=== PATIENT | male | born 1985 | race African-American/Black ===

== ENCOUNTER 2023-08-07 15:06 | Emergency (ER) | payer SELFPAY | END 2023-08-07 16:37 | disposition home or self-care (01) | LOC: ERS 15:06 | DX: H60.92 Unspecified otitis externa, left ear (principal); H66.92 Otitis media, unspecified, left ear | CPT/HCPCS: 99282 ==

== ENCOUNTER 2023-09-04 15:09 | Emergency (ER) | payer OTHER | END 2023-09-04 17:10 | disposition home or self-care (01) | LOC: ERS 15:09 | DX: G62.9 Polyneuropathy, unspecified (principal); M79.642 Pain in left hand; M79.641 Pain in right hand; F17.210 Nicotine dependence, cigarettes, uncomplicated | CPT/HCPCS: 36416; 99283 ==